=== PATIENT | male | born 1985 | race Two or more races ===

== ENCOUNTER 2023-07-30 08:37 | Emergency (ER) | payer OTHER ==
[~2023-07-30] VITALS: Ht 180.3 cm; Wt 79.4 kg
[2023-07-30 10:48] LABS: HEMATOCRIT 40.8 % (39.0-48.0); HEMOGLOBIN 14.3 g/dL (13-16.00); MEAN CELL VOLUME 93.9 fL (80.0-100.00); MEAN CORPUSCULAR HEMOGLOBIN 32.8 pg (27.00-32.0); MEAN CORPUSCULAR HGB CONC 34.9 g/dl (32.0-36.0); PLATELET COUNT 161 K/uL (150-450); RED BLOOD COUNT 4.35 M/uL (4.00-6.00)
== END 2023-07-30 12:33 | disposition home or self-care (01) ==
LOC: ER 08:38
DX: J06.9 Acute upper respiratory infection, unspecified (principal); Z20.822 Contact with and (suspected) exposure to COVID-19